=== PATIENT | female | born 1990 | race Caucasian/White ===

== ENCOUNTER 2018-08-11 16:31 | Emergency (ER) | payer OTHER ==
[~2018-08-11] VITALS: Ht 157.5 cm; Wt 116.1 kg
[2018-08-11 16:33] VITALS: Ht 157.5 cm; Wt 116.1 kg
[2018-08-11 17:30] VITALS: BP 136/71
== END 2018-08-11 17:30 | disposition home or self-care (01) ==
LOC: ED 16:31
DX: J20.8 Acute bronchitis due to other specified organisms (principal)
CPT/HCPCS: J1100

== ENCOUNTER 2018-08-17 01:15 | Emergency (ER) | payer OTHER ==
[~2018-08-17] VITALS: Ht 157.5 cm; Wt 119.3 kg
[2018-08-17 01:24] VITALS: Ht 157.5 cm; Wt 119.3 kg
[2018-08-17 06:14] VITALS: BP 141/90
== END 2018-08-17 06:14 | disposition home or self-care (01) ==
LOC: ED 01:15
DX: H66.92 Otitis media, unspecified, left ear (principal); H60.92 Unspecified otitis externa, left ear; J45.909 Unspecified asthma, uncomplicated

== ENCOUNTER 2018-09-01 22:46 | Emergency (ER) | payer OTHER ==
[~2018-09-01] VITALS: Ht 157.5 cm; Wt 116.1 kg
[2018-09-01 22:49] VITALS: BP 128/88; Ht 157.5 cm; Wt 116.1 kg
== END 2018-09-02 00:27 | disposition home or self-care (01) ==
LOC: ED 22:46
DX: J45.909 Unspecified asthma, uncomplicated (principal); R09.82 Postnasal drip; S89.81XA Other specified injuries of right lower leg, initial encounter; X58.XXXA Exposure to other specified factors, initial encounter; Y93.43 Activity, gymnastics; Y92.89 Other specified places as the place of occurrence of the external cause; Y99.8 Other external cause status
CPT/HCPCS: J7620; Q0092

== ENCOUNTER 2018-11-04 18:03 | Emergency (ER) | payer OTHER ==
[~2018-11-04] VITALS: Ht 157.5 cm; Wt 107.0 kg
[2018-11-04 18:15] VITALS: Ht 157.5 cm; Wt 107.0 kg
[2018-11-04 22:27] VITALS: BP 122/87
== END 2018-11-04 22:27 | disposition home or self-care (01) ==
LOC: ED 18:03
DX: G62.9 Polyneuropathy, unspecified (principal); L25.9 Unspecified contact dermatitis, unspecified cause; J45.909 Unspecified asthma, uncomplicated; Z98.890 Other specified postprocedural states
CPT/HCPCS: Q0092

== ENCOUNTER 2018-11-18 08:34 | Emergency (ER) | payer OTHER | END 2018-11-18 08:42 | disposition left against medical advice (07) | LOC: ED 08:34 | DX: Z53.21 Procedure and treatment not carried out due to patient leaving prior to being seen by health care provider (principal) ==

== ENCOUNTER 2019-01-20 06:59 | Emergency (ER) | payer OTHER ==
[~2019-01-20] VITALS: Ht 157.5 cm; Wt 109.3 kg
[2019-01-20 07:06] VITALS: Ht 157.5 cm; Wt 109.3 kg
[2019-01-20 08:52] VITALS: BP 114/61
== END 2019-01-20 08:52 | disposition home or self-care (01) ==
LOC: ED 06:59
DX: J02.0 Streptococcal pharyngitis (principal); J45.909 Unspecified asthma, uncomplicated
CPT/HCPCS: J1100

== ENCOUNTER 2019-02-15 20:50 | Emergency (ER) | payer OTHER ==
[~2019-02-15] VITALS: Ht 157.5 cm; Wt 111.6 kg
[2019-02-15 20:56] VITALS: BP 116/83; Ht 157.5 cm; Wt 111.6 kg
== END 2019-02-15 22:00 | disposition home or self-care (01) ==
LOC: ED 20:50
DX: J03.90 Acute tonsillitis, unspecified (principal); J45.909 Unspecified asthma, uncomplicated; Z98.890 Other specified postprocedural states

== ENCOUNTER 2019-05-09 21:32 | Emergency (ER) | payer SELFPAY ==
[~2019-05-09] VITALS: Ht 157.5 cm; Wt 112.5 kg
[2019-05-09 21:51] VITALS: BP 126/80; Ht 157.5 cm; Wt 112.5 kg
== END 2019-05-09 22:41 | disposition home or self-care (01) ==
LOC: ED 21:32
DX: J11.1 Influenza due to unidentified influenza virus with other respiratory manifestations (principal); J45.909 Unspecified asthma, uncomplicated; Z98.890 Other specified postprocedural states
CPT/HCPCS: 87804

== ENCOUNTER 2019-05-11 20:25 | Emergency (ER) | payer MEDICAID ==
[~2019-05-11] VITALS: Ht 157.5 cm; Wt 114.3 kg
[2019-05-11 20:56] VITALS: Ht 157.5 cm; Wt 114.3 kg
[2019-05-11 21:47] VITALS: BP 118/77
== END 2019-05-11 21:47 | disposition home or self-care (01) ==
LOC: ED 20:25
DX: B34.9 Viral infection, unspecified (principal); J45.909 Unspecified asthma, uncomplicated

== ENCOUNTER 2019-05-18 22:33 | Emergency (ER) | payer MEDICAID ==
[~2019-05-18] VITALS: Ht 157.5 cm; Wt 114.3 kg
[2019-05-18 22:40] VITALS: BP 127/61; Ht 157.5 cm; Wt 114.3 kg
== END 2019-05-19 01:36 | disposition left against medical advice (07) ==
LOC: ED 22:33
DX: Z53.21 Procedure and treatment not carried out due to patient leaving prior to being seen by health care provider (principal)

== ENCOUNTER 2019-05-25 15:09 | Emergency (ER) | payer MEDICAID ==
[~2019-05-25] VITALS: Ht 157.5 cm; Wt 113.9 kg
[2019-05-25 15:17] VITALS: BP 128/71; Ht 157.5 cm; Wt 113.9 kg
== END 2019-05-25 16:06 | disposition home or self-care (01) ==
LOC: ED 15:09
DX: J20.8 Acute bronchitis due to other specified organisms (principal); J45.909 Unspecified asthma, uncomplicated; Z98.890 Other specified postprocedural states

== ENCOUNTER 2019-11-24 23:10 | Emergency (ER) | payer OTHER ==
[~2019-11-24] VITALS: Ht 157.5 cm; Wt 123.6 kg
[2019-11-24 23:19] VITALS: Ht 157.5 cm; Wt 123.6 kg
[2019-11-25 00:41] LABS: BASOPHIL % 0.4 % (0-2); PLATELET COUNT 379 x10^3mcL (130-400); RED CELL DISTRIBUTION WIDTH 14.4 % (11.5-14.5)
[2019-11-25 01:12] LABS: CALCIUM 9.1 mg/dL (8.5-10.1); CHLORIDE SERUM 107 mmol/L (98-107); CREATININE SERUM 0.9 mg/dL (0.6-1.0); GFR1 > 60 mL/min; GLUCOSE SERUM 104 mg/dL (74-106); POTASSIUM SERUM 4.1 mmol/L (3.5-5.1); SODIUM SERUM 141 mmol/L (136-145)
[2019-11-25 01:17] LABS: ALBUMIN 3.6 g/dL (3.4-5.0); ALKALINE PHOSPHATASE 81 U/L (46-116); ALT/SGPT 18 U/L (14-59); AST/SGOT 11 U/L (15-37); BILIRUBIN TOTAL 0.2 mg/dL (0.20-1.00); LIPASE 72 IU/L (73-393); TOTAL PROTEIN, SERUM 7.4 g/dL (6.4-8.2)
[2019-11-25 02:11] VITALS: BP 107/64
== END 2019-11-25 02:11 | disposition home or self-care (01) ==
LOC: ED 23:10
PROVIDERS: Emergency Medicine
DX: R10.32 Left lower quadrant pain (principal); J45.909 Unspecified asthma, uncomplicated; Z98.890 Other specified postprocedural states
CPT/HCPCS: Q0162

== ENCOUNTER 2020-02-06 23:15 | Emergency (ER) | payer OTHER, SELFPAY ==
[~2020-02-06] VITALS: Ht 157.5 cm; Wt 117.9 kg
[2020-02-06 23:16] VITALS: Ht 157.5 cm; Wt 117.9 kg
[2020-02-07 00:31] VITALS: BP 130/75
== END 2020-02-07 00:31 | disposition home or self-care (01) ==
LOC: ED 23:15
DX: J06.9 Acute upper respiratory infection, unspecified (principal); H60.93 Unspecified otitis externa, bilateral; J45.909 Unspecified asthma, uncomplicated; Z20.828 Contact with and (suspected) exposure to other viral communicable diseases; Z98.890 Other specified postprocedural states
CPT/HCPCS: U0003

== ENCOUNTER 2020-05-06 17:36 | Emergency (ER) | payer OTHER, SELFPAY ==
[~2020-05-06] VITALS: Ht 157.5 cm; Wt 123.4 kg
[2020-05-06 17:54] VITALS: BP 127/78; Ht 157.5 cm; Wt 123.4 kg
== END 2020-05-06 20:10 | disposition left against medical advice (07) ==
LOC: ED 17:36
DX: J02.9 Acute pharyngitis, unspecified (principal); J45.909 Unspecified asthma, uncomplicated; Z98.890 Other specified postprocedural states
CPT/HCPCS: U0003

== ENCOUNTER 2020-05-19 20:00 | Emergency (ER) | payer OTHER ==
[~2020-05-19] VITALS: Ht 157.5 cm; Wt 117.9 kg
[2020-05-19 20:26] VITALS: BP 122/65; Ht 157.5 cm; Wt 117.9 kg
[2020-05-19] MEDS ORDERED: IBU600 M2 PO (22:29)
== END 2020-05-19 22:38 | disposition home or self-care (01) ==
LOC: ED 20:00
DX: S82.401A Unspecified fracture of shaft of right fibula, initial encounter for closed fracture (principal); J45.909 Unspecified asthma, uncomplicated; X58.XXXA Exposure to other specified factors, initial encounter; Y93.89 Activity, other specified; Y92.89 Other specified places as the place of occurrence of the external cause; Y99.8 Other external cause status